=== PATIENT | male | born 1960 | race Caucasian/White ===

== ENCOUNTER 2023-11-18 10:20 | Emergency (ER) | payer OTHER ==
[~2023-11-18] VITALS: Ht 157.5 cm; Wt 68.0 kg
[2023-11-18 10:23] VITALS: O2SAT 98
[2023-11-18 10:45] VITALS: TEMP 97.9
[2023-11-18 10:53] LABS: HEMOGLOBIN. 11.8 g/dL (14.0-18.0); MEAN CORPUSCULAR HEMOGLOBIN 26.2 pg (28.0-32.0); MEAN CORPUSCULAR HGB CONC 32.9 g/dL (31.0-37.0); MEAN CORPUSCULAR VOLUME 79.7 fL (80.0-94.0); MEAN PLATELET VOLUME 7.6 fl (7.4-10.4); PLATELET 590 x1000/uL (130-400); RED BLOOD CELL COUNT 4.51 mill/uL (4.7-6.1); RED CELL DISTRIBUTION WIDTH 16.7 % (11.6-14.6); WHITE BLOOD COUNT 12.6 x1000/uL (4.5-11.0)
[2023-11-18 10:55] LABS: DIFFERENTIAL COMMENT 1
[2023-11-18 11:03] LABS: CHLORIDE 101 mEq/L (98-107); POTASSIUM 4.6 mEq/L (3.5-5.1); SODIUM 135 mEq/L (136-145)
[2023-11-18 11:04] LABS: CARBON DIOXIDE 27 mEq/L (21-32)
[2023-11-18 11:05] LABS: CALCIUM 8.6 mg/dL (8.7-10.4); PROTHROMBIN TIME 10.7 sec (9.6-11.0)
[2023-11-18 11:10] LABS: GLUCOSE 136 mg/dL (70-105); UREA NITROGEN BLOOD 29 mg/dL (9-23)
[2023-11-18 11:38] LABS: ANISOCYTOSIS 1+; PLATELET ESTIMATE INCREASED
[2023-11-18 11:39] LABS: MICROCYTOSIS 1+
[2023-11-18 14:46] VITALS: BP 131/70; PULSE 97; RESP 15
== END 2023-11-18 15:09 | disposition short-term general hospital (02) ==
LOC: ER 10:20 → EDBEDREQTM 12:48 → EDBEDREQ 12:48 → ER 15:09
DX: E16.2 Hypoglycemia, unspecified (principal); E11.9 Type 2 diabetes mellitus without complications; I10 Essential (primary) hypertension; I82.499 Acute embolism and thrombosis of other specified deep vein of unspecified lower extremity
CPT/HCPCS: 80048; 85025; 85610; 36415; 99285; Z7610

== ENCOUNTER 2024-09-18 16:57 | Inpatient (IN) | payer OTHER ==
[~2024-09-18] VITALS: Ht 154.9 cm; Wt 75.0 kg
[~2024-09-18 16:57] MED LIST: AMLO10TA80 PO; ASPI-1406 PO; ATEN-42 PO; COR6 MT; EMPA25TA PO; FURO20TA4 PO; GABA800T PO; HYDR-459 PO; LIP40 PO; LOPE2CAP PO; LORA10TA7 PO; LOSA50TA41 PO; METF-416 PO; SERT-112 PO; SULF1TAB48 MT; TRAZ300T11 PO
[2024-09-18 19:56] LABS: BASOPHILS % 0.8 % (0.0-2.0); EOSINOPHILS % 3.5 % (0.0-5.0); HEMOGLOBIN. 10.8 g/dL (14.0-18.0); LYMPHOCYTES % 18.7 % (20.0-50.0); MEAN CORPUSCULAR HEMOGLOBIN 26.4 pg (28.0-32.0); MEAN CORPUSCULAR HGB CONC 31.7 g/dL (31.0-37.0); MEAN CORPUSCULAR VOLUME 83.2 fL (80.0-94.0); MEAN PLATELET VOLUME 7.2 fl (7.4-10.4); MONOCYTES % 7.4 % (2.0-8.0); NEUTROPHILS % 69.6 % (40.0-76.0); PLATELET 585 x1000/uL (130-400); RED BLOOD CELL COUNT 4.09 mill/uL (4.7-6.1); RED CELL DISTRIBUTION WIDTH 17.8 % (11.6-14.6); WHITE BLOOD COUNT 9.1 x1000/uL (4.5-11.0)
[2024-09-18 20:05] LABS: CHLORIDE 107 mEq/L (98-107); POTASSIUM 3.9 mEq/L (3.5-5.1); SODIUM 140 mEq/L (136-145)
[2024-09-18 20:06] LABS: CALCIUM 8.2 mg/dL (8.7-10.4); CARBON DIOXIDE 26 mEq/L (21-32)
[2024-09-18 20:11] LABS: GLUCOSE 201 mg/dL (70-105); UREA NITROGEN BLOOD 15 mg/dL (9-23)
[2024-09-18 20:12] LABS: TROPONIN I HIGH SENSITIVITY 14 ng/L (3.0-53)
[2024-09-19] MEDS: ACETAMINOPHEN 325MG TABLET PO ONE (02:02)
[2024-09-19] MEDS: FUROSEMIDE 40MG/4ML VIAL IVP SCH ×2 (02:16→11:00)
[2024-09-19] MEDS: NITROGLYCERIN OINT 1GM/INCH UDPKT TD ONE (02:23)
[2024-09-19 04:40] VITALS: BP 179/105; PULSE 103; RESP 14; TEMP 36.3
[2024-09-19] MEDS ORDERED: HYDROXYZINE 25MG TABLET PO PRN (04:45)
[2024-09-19] MEDS ORDERED: DEXTROSE 50% WATER 50ML SYRINGE IV PRN ×2 (04:45)
[2024-09-19] MEDS: GABAPENTIN 400MG CAPSULE PO SCH (06:05)
[2024-09-19] MEDS: CLONIDINE 0.1MG TABLET PO PRN (06:06)
[2024-09-19] MEDS: HYDROCODONE/ACETAMINOPHEN 5/325MG TABLET PO PRN (06:06)
[2024-09-19] MEDS: BLOOD SUGAR DIAGNOSTIC STRIP TEST SCH (06:10)
[2024-09-19] MEDS: INSULIN LISPRO 100 UNITS/ML SUBCUT SCH (06:53)
[2024-09-19] MEDS ORDERED: FUROSEMIDE 40MG/4ML VIAL IVP SCH (07:15)
[2024-09-19 08:00] VITALS: BP 169/95; PULSE 93; RESP 13; TEMP 36.4; O2SAT 99
[2024-09-19] MEDS ORDERED: SERTRALINE HCL 100MG TABLET PO SCH (10:45)
[2024-09-19] MEDS ORDERED: ATENOLOL 25MG TABLET PO SCH (10:45)
[2024-09-19] MEDS ORDERED: AMLODIPINE 10MG TABLET PO SCH (10:45)
[2024-09-19] MEDS ORDERED: CARVEDILOL 6.25 MG TABLET PO SCH (10:45)
[2024-09-19] MEDS ORDERED: ASPIRIN 81MG EC TABLET PO SCH (10:45)
[2024-09-19] MEDS ORDERED: FUROSEMIDE 20MG TABLET PO SCH (10:45)
[2024-09-19] MEDS ORDERED: EMPAGLIFLOZIN 25MG TABLET PO SCH (10:45)
[2024-09-19] MEDS ORDERED: LOSARTAN 50 MG TABLET PO SCH (10:45)
[2024-09-19 10:55] LABS: BASOPHILS % 0.9 % (0.0-2.0); HEMATOCRIT. 30.3 % (42.0-52.0); MEAN CORPUSCULAR HEMOGLOBIN 27.2 pg (28.0-32.0); MEAN CORPUSCULAR HGB CONC 33.1 g/dL (31.0-37.0); MEAN CORPUSCULAR VOLUME 82.4 fL (80.0-94.0); MEAN PLATELET VOLUME 7.2 fl (7.4-10.4); MONOCYTES % 7.1 % (2.0-8.0); PLATELET 560 x1000/uL (130-400); RED BLOOD CELL COUNT 3.68 mill/uL (4.7-6.1); RED CELL DISTRIBUTION WIDTH 17.2 % (11.6-14.6); WHITE BLOOD COUNT 8.3 x1000/uL (4.5-11.0)
[2024-09-19] MEDS: ASPIRIN 81MG TABLET PO SCH (11:01)
[2024-09-19] MEDS: ENOXAPARIN 40MG/0.4ML SYR SUBCUT SCH (11:01)
[2024-09-19] MEDS: LOSARTAN 50 MG TABLET PO SCH (11:01)
[2024-09-19] MEDS: EMPAGLIFLOZIN 25MG TABLET PO SCH (11:02)
[2024-09-19] MEDS: METFORMIN HCL 500MG TABLET PO SCH (11:02)
[2024-09-19] MEDS: LORATADINE 10MG TABLET PO SCH (11:02)
[2024-09-19] MEDS: SERTRALINE HCL 100MG TABLET PO SCH (11:02)
[2024-09-19] MEDS: ATENOLOL 25MG TABLET PO SCH (11:03)
[2024-09-19] MEDS: AMLODIPINE 10MG TABLET PO SCH (11:03)
[2024-09-19] MEDS: CARVEDILOL 6.25 MG TABLET PO SCH (11:04)
[2024-09-19 11:26] LABS: CARBON DIOXIDE 27 mEq/L (21-32); CHLORIDE 104 mEq/L (98-107); POTASSIUM 3.7 mEq/L (3.5-5.1); SODIUM 137 mEq/L (136-145)
[2024-09-19 11:32] LABS: GLUCOSE 245 mg/dL (70-105); TRIGLYCERIDE 119 mg/dL (0-150); UREA NITROGEN BLOOD 13 mg/dL (9-23)
[2024-09-19 11:33] LABS: LDL CHOLESTEROL 108 mg/dL (5-100)
[2024-09-19 11:34] LABS: CHOLESTEROL 177 mg/dL (<200); HDL CHOLESTEROL 52 mg/dL (>55)
[2024-09-19 12:00] VITALS: BP 157/94; PULSE 97; RESP 16; TEMP 36.4; O2SAT 97
[2024-09-19] MEDS ORDERED: MEDICATION NOT ON FORMULARY EA (Gabapentin (Neurontin) 1 TAB) PO SCH (13:00)
[2024-09-19] MEDS: PNEUMOCOCCAL 20-VAL CONJ-DIP CRM 0.5ML IM ONE (15:00)
[2024-09-19 16:00] VITALS: BP 127/80; PULSE 98; RESP 12; TEMP 36.6; O2SAT 98
[2024-09-19 20:00] VITALS: BP_SYST 131; BP_SYST 132; BP_SYST 134; BP_DIAS 7; BP_DIAS 79; BP_DIAS 83; PULSE 76; PULSE 78; PULSE 99; RESP 1; RESP 18; RESP 19; TEMP 36.8; TEMP 36.9; O2SAT 98; O2SAT 99
[2024-09-19] MEDS: ATORVASTATIN CALCIUM 40MG TABLET PO SCH (20:10)
[2024-09-19] MEDS: TRAZODONE HCL 50MG TABLET PO SCH (20:11)
[2024-09-19] MEDS ORDERED: ATORVASTATIN CALCIUM 40MG TABLET PO SCH (21:00)
[2024-09-20] VITALS (8 sets, daily range): BP systolic 117–133; BP diastolic 65–95; PULSE 66–83; RESP 16–23; TEMP 36.4–36.9; O2SAT 96–100
[2024-09-20 07:22] LABS: CHLORIDE 106 mEq/L (98-107); POTASSIUM 3.8 mEq/L (3.5-5.1); SODIUM 140 mEq/L (136-145)
[2024-09-20 07:23] LABS: CALCIUM 8.2 mg/dL (8.7-10.4); CARBON DIOXIDE 28 mEq/L (21-32)
[2024-09-20 07:28] LABS: CREATININE 1.1 mg/dL (0.6-1.3); GLUCOSE 148 mg/dL (70-105); UREA NITROGEN BLOOD 16 mg/dL (9-23)
[2024-09-20 07:45] LABS: BASOPHILS % 1.3 % (0.0-2.0); EOSINOPHILS % 4.1 % (0.0-5.0); HEMATOCRIT. 30.9 % (42.0-52.0); LYMPHOCYTES % 22.1 % (20.0-50.0); MEAN CORPUSCULAR HGB CONC 32.5 g/dL (31.0-37.0); MEAN CORPUSCULAR VOLUME 82.9 fL (80.0-94.0); MEAN PLATELET VOLUME 7.4 fl (7.4-10.4); MONOCYTES % 11.2 % (2.0-8.0); NEUTROPHILS % 61.3 % (40.0-76.0); PLATELET 503 x1000/uL (130-400); RED BLOOD CELL COUNT 3.72 mill/uL (4.7-6.1); RED CELL DISTRIBUTION WIDTH 17.2 % (11.6-14.6); WHITE BLOOD COUNT 7.8 x1000/uL (4.5-11.0)
[2024-09-20] MEDS: METOLAZONE 2.5MG TABLET PO NR (11:27)
[2024-09-21] VITALS: BP 107/64; PULSE 62; RESP 16; TEMP 36.6; O2SAT 96
[2024-09-21 04:00] VITALS: BP 120/83; PULSE 63; RESP 14; TEMP 36.4; O2SAT 98
[2024-09-21 08:00] VITALS: BP 120/63; PULSE 69; RESP 11; TEMP 36.7; O2SAT 99
[2024-09-21] MEDS: LOPERAMIDE HCL 2MG CAPSULE PO PRN (10:33)
[2024-09-21 12:00] VITALS: BP 132/75; PULSE 70; RESP 15; TEMP 36.4; O2SAT 99
[2024-09-21 16:00] VITALS: BP 118/67; PULSE 64; RESP 17; TEMP 36.7; O2SAT 99
[2024-09-21 20:00] VITALS: BP 117/72; PULSE 67; RESP 14; TEMP 36.7; O2SAT 96
[2024-09-22] VITALS (7 sets, daily range): BP systolic 113–134; BP diastolic 62–77; PULSE 60–69; RESP 12–20; TEMP 36.5–36.9; O2SAT 95–99
[2024-09-22] MEDS ORDERED: IOHEXOL-350 100 ML BOTTLE ONE (15:18)
[2024-09-23] VITALS: BP 114/66; PULSE 64; RESP 18; TEMP 36.7; O2SAT 95
[2024-09-23 04:00] VITALS: BP 102/60; PULSE 60; RESP 12; TEMP 36.3; O2SAT 97
[2024-09-23 07:58] LABS: HEMATOCRIT 29.7 % (42.0-52.0); HEMOGLOBIN 9.7 g/dL (14.0-18.0); MEAN CORPUSCULAR HGB CONC 32.6 g/dL (31.0-37.0); MEAN CORPUSCULAR VOLUME 82.7 fL (80.0-94.0); PLATELET 417 x1000/uL (130-400); RED BLOOD CELL COUNT 3.58 mill/uL (4.7-6.1); RED CELL DISTRIBUTION WIDTH 17.1 % (11.6-14.6); WHITE BLOOD COUNT 5.9 x1000/uL (4.5-11.0)
[2024-09-23 08:00] VITALS: BP 120/72; PULSE 64; RESP 14; TEMP 36.4; O2SAT 95
[2024-09-23 08:08] LABS: CARBON DIOXIDE 32 mEq/L (21-32); CHLORIDE 100 mEq/L (98-107); SODIUM 137 mEq/L (136-145)
[2024-09-23 08:09] LABS: CALCIUM 7.7 mg/dL (8.7-10.4)
[2024-09-23 08:13] LABS: CREATININE 1.2 mg/dL (0.6-1.3); GLUCOSE 119 mg/dL (70-105)
[2024-09-23 08:14] LABS: UREA NITROGEN BLOOD 19 mg/dL (9-23)
[2024-09-23 08:27] LABS: PARTIAL THROMBOPLASTIN TIME 35.5 sec (23.4-31.0); PROTHROMBIN TIME 10.3 sec (9.6-11.0)
[2024-09-23] MEDS ORDERED: HEPARIN 1000 UNITS/ML 10ML ONE (11:53)
[2024-09-23] MEDS ORDERED: IODIXANOL 320 MG/ML 150ML BOTTLE IV ONE (11:53)
[2024-09-23] MEDS ORDERED: LIDOCAINE HCL 1% 20ML VIAL ONE (11:53)
[2024-09-23 12:00] VITALS: BP 118/64; PULSE 63; RESP 16; TEMP 36.5; O2SAT 95
[2024-09-23] MEDS ORDERED: DIPHENHYDRAMINE 50MG/ML VIAL ONE (12:20)
[2024-09-23] MEDS ORDERED: MIDAZOLAM HCL 2 MG/2 ML VIAL ONE (12:20)
[2024-09-23] MEDS ORDERED: FENTANYL CITRATE/PF 50MCG/ML 2ML VIAL ONE (12:20)
[2024-09-23 16:00] VITALS: BP 121/70; PULSE 64; RESP 16; TEMP 36.4; O2SAT 96
[2024-09-23 20:00] VITALS: BP 126/69; PULSE 65; RESP 12; TEMP 36.8; O2SAT 96
[2024-09-24] VITALS: BP 107/68; PULSE 60; RESP 16; TEMP 37; O2SAT 95
[2024-09-24 04:00] VITALS: BP 102/57; PULSE 59; RESP 18; TEMP 36.6; O2SAT 94
[2024-09-24 07:36] VITALS: BP 130/79; PULSE 67; RESP 12; TEMP 36.9; O2SAT 94
[2024-09-24 08:00] VITALS: BP 135/71; PULSE 66; RESP 11; O2SAT 94
[2024-09-24] MEDS ORDERED: FURO-151 MT (08:03)
[2024-09-24] MEDS ORDERED: POTA-205 MT (08:03)
[2024-09-24 09:08] VITALS: BP 135/71; PULSE 75; TEMP 98.4; O2SAT 98
== END 2024-09-24 12:10 | disposition home or self-care (01) | DRG 194 ==
LOC: ER 16:57 → 3WST 09-19 01:12
PROVIDERS: ADMIT Internal Medicine; ATTEND Internal Medicine
PROC: B41D1ZZ Fluoroscopy of Aorta and Bilateral Lower Extremity Arteries using Low Osmolar Contrast (ICD-10-PCS; principal; 2024-09-23)
DX: I11.0 Hypertensive heart disease with heart failure (principal); E11.51 Type 2 diabetes mellitus with diabetic peripheral angiopathy without gangrene; E11.621 Type 2 diabetes mellitus with foot ulcer; L97.425 Non-pressure chronic ulcer of left heel and midfoot with muscle involvement without evidence of necrosis; I50.23 Acute on chronic systolic (congestive) heart failure; E78.00 Pure hypercholesterolemia, unspecified; F17.210 Nicotine dependence, cigarettes, uncomplicated; F12.90 Cannabis use, unspecified, uncomplicated; Z59.00 Homelessness unspecified; Z79.82 Long term (current) use of aspirin; Z86.718 Personal history of other venous thrombosis and embolism; Z88.8 Allergy status to other drugs, medicaments and biological substances
CPT/HCPCS: 36247; 36415; 71045; 73630; 75635; 75710; 80048; 80061; 82962; 83036; 83880; 84484; 85025; 85027; 85379; 86850; 86900; 93005; 93923; 93970; 99285; A4606; C1725; C1769; C1893; J1200; J1644; J1650; J1815; J1940; J2250; J3010; J3490; Q9967

== ENCOUNTER 2024-10-31 13:57 | Emergency (ER) | payer OTHER ==
[~2024-10-31] VITALS: Ht 165.1 cm; Wt 73.0 kg
[~2024-10-31 13:57] MED LIST changes: +FURO-151 MT; +POTA-205 MT; -SULF1TAB48 MT
[2024-10-31 14:10] VITALS: O2SAT 100
[2024-10-31 16:35] LABS: BASOPHILS % 0.4 % (0.0-2.0); EOSINOPHILS % 2.2 % (0.0-5.0); HEMATOCRIT. 32.3 % (42.0-52.0); HEMOGLOBIN. 10.6 g/dL (14.0-18.0); LYMPHOCYTES % 16.5 % (20.0-50.0); MEAN CORPUSCULAR HEMOGLOBIN 26.8 pg (28.0-32.0); MEAN CORPUSCULAR HGB CONC 32.8 g/dL (31.0-37.0); MEAN CORPUSCULAR VOLUME 81.6 fL (80.0-94.0); MEAN PLATELET VOLUME 7.2 fl (7.4-10.4); MONOCYTES % 7.7 % (2.0-8.0); NEUTROPHILS % 73.2 % (40.0-76.0); PLATELET 601 x1000/uL (130-400); RED BLOOD CELL COUNT 3.96 mill/uL (4.7-6.1); RED CELL DISTRIBUTION WIDTH 15.7 % (11.6-14.6); WHITE BLOOD COUNT 8.9 x1000/uL (4.5-11.0)
[2024-10-31 16:45] LABS: CHLORIDE 100 mEq/L (98-107); SODIUM 142 mEq/L (136-145)
[2024-10-31] MEDS: SODIUM CHLORIDE 0.9% 500 ML IV ONE (16:45)
[2024-10-31] MEDS: CEFTRIAXONE 1GM/50ML 50 ML IV ONE (16:45)
[2024-10-31] MEDS: MORPHINE SULFATE 4 MG/ML INJ (FOR IV/IM USE) IV ONE (16:45)
[2024-10-31 16:46] LABS: CALCIUM 8.1 mg/dL (8.7-10.4); CARBON DIOXIDE 38 mEq/L (21-32)
[2024-10-31 16:51] LABS: CREATININE 1.1 mg/dL (0.6-1.3); GLUCOSE 131 mg/dL (70-105); UREA NITROGEN BLOOD 10 mg/dL (9-23)
[2024-10-31 16:52] LABS: TROPONIN I HIGH SENSITIVITY 8 ng/L (3.0-53)
[2024-10-31 16:53] LABS: ALANINE AMINOTRANSFERASE 14 IU/L (10-49); ALBUMIN 2.8 g/dL (3.2-4.8); ASPARTATE AMINOTRANSFERASE 21 IU/L (<34)
[2024-10-31 16:54] LABS: BILIRUBIN TOTAL < 0.2 mg/dL (0.1-1.0); PROTEIN TOTAL 5.5 g/dL (6.0-8.3)
[2024-10-31 17:14] LABS: ERYTHROCYTE SEDIMENTATION RATE 99 mm/hr (0-20)
[2024-10-31 19:00] VITALS: BP 161/86; PULSE 87; RESP 14; TEMP 37.4; O2SAT 97
== END 2024-10-31 19:40 | disposition short-term general hospital (02) ==
LOC: ER 13:57
DX: E11.628 Type 2 diabetes mellitus with other skin complications (principal); E11.621 Type 2 diabetes mellitus with foot ulcer; L08.9 Local infection of the skin and subcutaneous tissue, unspecified; I10 Essential (primary) hypertension; Z79.82 Long term (current) use of aspirin; Z79.84 Long term (current) use of oral hypoglycemic drugs; Z79.899 Other long term (current) drug therapy; Z86.718 Personal history of other venous thrombosis and embolism; Z96.649 Presence of unspecified artificial hip joint; Z88.8 Allergy status to other drugs, medicaments and biological substances
CPT/HCPCS: 80053; 82962; 83880; 83605; 85025; 85651; 87040; 87070; 87186; 87205; 84484; 87077; 36415; 84145; 73630; 96361; 96374; 96375; 99291; J0696; J2270; J7040; Z7610 ×3

== ENCOUNTER 2025-03-14 12:25 | Emergency (ER) | payer OTHER ==
[~2025-03-14] VITALS: Ht 170.2 cm; Wt 58.0 kg
[~2025-03-14 12:25] MED LIST changes: -FURO20TA4 PO; -LOPE2CAP PO; -LORA10TA7 PO
[2025-03-14 12:34] VITALS: O2SAT 98
[2025-03-14] MEDS: ACETAMINOPHEN 500MG TABLET PO ONE (15:20)
[2025-03-14 20:39] VITALS: BP 137/75; PULSE 88; RESP 18; TEMP 36.7; O2SAT 99
== END 2025-03-14 20:39 | disposition home or self-care (01) ==
LOC: ER 12:25
DX: R51.9 Headache, unspecified (principal); E11.9 Type 2 diabetes mellitus without complications; E78.00 Pure hypercholesterolemia, unspecified; G31.9 Degenerative disease of nervous system, unspecified; I10 Essential (primary) hypertension; I67.82 Cerebral ischemia; Z55.6 Problems related to health literacy; Z79.82 Long term (current) use of aspirin; Z79.84 Long term (current) use of oral hypoglycemic drugs; Z79.899 Other long term (current) drug therapy; Z86.718 Personal history of other venous thrombosis and embolism; Z88.8 Allergy status to other drugs, medicaments and biological substances; Z96.649 Presence of unspecified artificial hip joint; W01.10XA Fall on same level from slipping, tripping and stumbling with subsequent striking against unspecified object, initial encounter; Y93.89 Activity, other specified; Y92.89 Other specified places as the place of occurrence of the external cause; Y99.8 Other external cause status
CPT/HCPCS: 99284